=== PATIENT | female | born 1980 | race Caucasian/White ===

== ENCOUNTER 2020-05-24 08:06 | Inpatient (IN) ==
[2020-05-24] MEDS ORDERED: Lactated Ringers 1000 ml BAG 1,000 ML IV ONE ×2 (08:26→14:28)
[2020-05-24] MEDS ORDERED: Buffered Lidocaine 1% SYRIN 1 ml INTRADERM ONE (08:26)
[2020-05-24] MEDS ORDERED: Lactated Ringers 1000 ml BAG 1,000 ML IV SCH ×4 (09:00→18:00)
[2020-05-24] MEDS ORDERED: Oxytocin in LR 20 UNITS/1,000 ML BAG IVPB SCH ×2 (09:00→18:00)
[2020-05-24 09:33] LABS: ABS Eosinophils 0.1 10^3/ul (0-0.6); ABS Lymphocytes 1.4 10^3/ul (1.0-4.8); ABS Monocytes 0.5 10^3/ul (0-0.8); Eosinophil % 0.8 %; Hematocrit 35 % (35-47); Hemoglobin 11.7 g/dL (12.0-16.0); Lymphocyte % 19.9 %; Mean Corpuscular HGB Conc 34 g/dL (31-36); Mean Corpuscular Hemoglobin 31 pg (27-31); Mean Corpuscular Volume 92 fL (80-97); Mean Platelet Volume 8.8 fL (7.4-10.4); Nucleated Red Blood Cells % 0.1; Platelet Count 197 10^3/uL (150-450); Red Blood Count 3.76 10^6 /uL (3.70-4.87); Red Cell Distribution Width 13 % (10-15)
[2020-05-24 10:03] LABS: Urine Benzodiazepine Screen None Detected (None Detect); Urine Cannabinoids Screen None Detected (None Detect); Urine Opiates Screen None Detected (None Detect)
[2020-05-24] MEDS ORDERED: OBEPIDURAL 250 ML EPIDURAL ONE (13:21)
[2020-05-24] MEDS ORDERED: Phenylephrine 40 mcg/mL 10mL (400mcg) SYRINGE ONE (13:29)
[2020-05-24] MEDS ORDERED: Phenylephrine 40 mcg/mL 10mL (400mcg) SYRINGE IV PUSH PRN ×2 (14:28)
[2020-05-24] MEDS ORDERED: Lactated Ringers 1000 ml BAG 500 ML IV PRN ×2 (14:28)
[2020-05-24] MEDS ORDERED: Sodium Citrate/Citric Acid LIQ 15 ML UDC PO PRN (14:28)
[2020-05-24 14:58] LABS: Urine Appearance Cloudy; Urine Bilirubin Negative (Negative); Urine Blood Negative (Negative); Urine Color Yellow; Urine Glucose Negative (Negative); Urine Ketones Negative (Negative); Urine Nitrite Negative (Negative); Urine Protein Negative (Negative); Urine Specific Gravity 1.011 (1.002-1.030); Urine Urobilinogen Negative (Negative)
[2020-05-24] MEDS ORDERED: OBEPIDURAL 250 ML EPIDURAL SCH (15:00)
[2020-05-24] MEDS ORDERED: Glycerin ADULT 2.4 gm SUPP PR PRN (17:38)
[2020-05-24] MEDS ORDERED: Dibucaine 1% OINT 28.35 GM TUBE PR PRN (17:38)
[2020-05-24] MEDS ORDERED: Witch Hazel PAD JAR TOPICAL PRN (17:38)
[2020-05-25] MEDS ORDERED: Phenylephrine 40 mcg/mL 10mL (400mcg) SYRINGE ONE (07:00)
[2020-05-25] MEDS ORDERED: Oxytocin 10 UNITS/ML 1 ML VIAL ONE (07:20)
[2020-05-25 07:41] LABS: ABS Eosinophils 0.1 10^3/ul (0-0.6); ABS Lymphocytes 2.1 10^3/ul (1.0-4.8); ABS Monocytes 0.7 10^3/ul (0-0.8); Hematocrit 33 % (35-47); Hemoglobin 11.3 g/dL (12.0-16.0); Lymphocyte % 19.4 %; Mean Corpuscular HGB Conc 34 g/dL (31-36); Mean Corpuscular Hemoglobin 32 pg (27-31); Mean Corpuscular Volume 92 fL (80-97); Mean Platelet Volume 8.6 fL (7.4-10.4); Platelet Count 190 10^3/uL (150-450); Red Blood Count 3.55 10^6 /uL (3.70-4.87); Red Cell Distribution Width 13 % (10-15)
[2020-05-26 08:02] VITALS: BP 104/50
== END 2020-05-26 13:30 | disposition home or self-care (01) | DRG 807 ==
LOC: MCHOBOUT 08:06 → MCHOB 08:32
PROVIDERS: ADMIT Obstetrics & Gynecology; ATTEND Obstetrics & Gynecology